=== PATIENT | male | born 1975 | race Caucasian/White ===

== ENCOUNTER 2017-10-17 03:18 | Emergency (ER) | payer SELFPAY ==
[2017-10-17 03:33] VITALS: BP 111/67; PULSE 68; O2SAT 97
[2017-10-17] MEDS ORDERED: TORAdol 30 mg Injection IM ONE (03:47)
[2017-10-17] MEDS ORDERED: Rocephin 1000 MG INJ IM ONE (03:48)
[2017-10-17] MEDS ORDERED: Rocephin 1000 MG INJ ONE (03:51)
[2017-10-17] MEDS ORDERED: TORAdol 30 mg Injection ONE (03:51)
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
--- NOTE | 2017-10-17 09:06 | XRAY ---
Indication: Soft tissue swelling. No known injury. Comparison: None 2 views of the right forearm obtained. No bony, articular, or soft tissue abnormalities.
--- NOTE | 2017-10-17 09:06 | XRAY ---
Indication: Soft tissue swelling. No known injury. Comparison: None 3 views of the right hand obtained. No bony, articular, or soft tissue abnormalities.
== END 2017-10-17 04:10 | disposition home or self-care (01) ==
LOC: ED 03:18
DX: L03.113 Cellulitis of right upper limb (principal)
CPT/HCPCS: 73090; 73130; 96372; 99284; J0696; J1885